=== PATIENT | female | born 1965 | race Caucasian/White ===

== ENCOUNTER 2018-09-17 17:38 | Emergency (ER) | payer OTHER ==
[2018-09-17 17:53] VITALS: O2SAT 99
[2018-09-17 18:41] LABS: BASO # 0.1 K/uL (0.0-0.2); BASO % 1.7 % (0.0-2.0); EOS # 0.2 K/uL (0.0-0.7); EOS % 2.8 % (0.0-4.0); HEMOGLOBIN 11.1 g/dL (12.0-16.0); LYMPH # 2.2 K/uL (1.0-4.3); LYMPH % 30.4 % (20.0-40.0); MEAN CELL VOLUME 69.6 fl (81.0-99.0); MEAN CORPUSCULAR HEMOGLOBIN 21.7 pg (27.0-31.0); MEAN CORPUSCULAR HGB CONC 31.1 g/dL (33.0-37.0); MEAN PLATELET VOLUME 8.4 fl (7.2-11.7); MONO # 0.4 K/uL (0.0-0.8); NEUT # 4.2 K/uL (1.8-7.0); NEUT % 59.1 % (50.0-75.0); NRBC % 0.1 % (0.0-0.0); RBC 5.14 Mil/uL (3.80-5.20); RED CELL DISTRIBUTION WIDTH 19.1 % (11.5-14.5); WHITE BLOOD COUNT 7.1 K/uL (4.8-10.8)
[2018-09-17 18:56] LABS: ALB/GLOB RATIO 1.5 (1.0-2.1); ALBUMIN 4.6 g/dL (3.5-5.0); ALT/SGPT 37 U/L (9-52); AST/SGOT 33 U/L (14-36); BLOOD UREA NITROGEN 12 mg/dl (7-17); CALCIUM 9.4 mg/dL (8.4-10.2); GFR NON-AFRICAN AMERICAN > 60; LIPASE 88 U/L (23-300)
--- NOTE | 2018-09-17 19:03 | ED PDOC ---
HPI: Abdomen Time Seen by Provider: 09/17/18 17:56 Chief Complaint (Nursing): Abdominal Pain Chief Complaint (Provider): Epigastric Pain History Per: Patient History/Exam Limitations: no limitations Onset/Duration Of Symptoms: Other (x2 weeks) Current Symptoms Are (Timing): Still Present Location Of Pain/Discomfort: Epigastric, LLQ Associated Symptoms: Nausea, Diarrhea (x1). denies: Vomiting Additional Complaint(s): 53 year old female presents to the ED stating, for the past 2 weeks, she has had epigastric pain radiating to the LLQ. She reports pain is associated with nausea and has had 1 episode of diarrhea. Denies vomiting, chest pain, shortness of breath, melena, hematochezia, rectal bleeding, fever, chills, or postprandial pain. PMD: none provided Past Medical History Reviewed: Historical Data, Nursing Documentation, Vital Signs Vital Signs: Last Vital Signs Temp 98.6 F 09/17/18 17:52 Pulse 90 09/17/18 17:52 Resp 16 09/17/18 17:52 BP 166/94 H 09/17/18 17:52 Pulse Ox 99 09/17/18 17:52 - Medical History PMH: Anemia, HTN - Surgical History Surgical History: Appendectomy - Family History Family History: States: Unknown Family Hx - Allergies Allergies/Adverse Reactions: Allergies Allergy/AdvReac Type Severity Reaction Status Date / Time No Known Allergies Allergy Verified 09/17/18 17:50 Review of Systems ROS Statement: Except As Marked, All Systems Reviewed And Found Negative Constitutional: Negative for: Fever, Chills Cardiovascular: Negative for: Chest Pain Respiratory: Negative for: Shortness of Breath Gastrointestinal: Positive for: Nausea, Abdominal Pain (Epigastric pain radiating to LLQ), Diarrhea (x1). Negative for: Vomiting, Melena, Hematochezia, Other (rectal bleeding, postprandial pain) Physical Exam - Reviewed Nursing Documentation Reviewed: Yes Vital Signs Reviewed: Yes - Physical Exam Appears: Positive for: No Acute Distress Cardiovascular/Chest: Positive for: Regular Rate, Rhythm Respiratory: Positive for: Normal Breath Sounds. Negative for: Wheezing, Respir atory Distress Gastrointestinal/Abdominal: Positive for: Normal Exam, Soft. Negative for: Tenderness (to deep palpation) Back: Negative for: L CVA Tenderness, R CVA Tenderness - Laboratory Results Result Diagrams: 09/17/18 18:30 09/17/18 18:30 Lab Results: Total Bilirubin 0.3 mg/dl (0.2-1.3) 09/17/18 18:30 AST 33 U/L (14-36) 09/17/18 18:30 ALT 37 U/L (9-52) 09/17/18 18:30 Alkaline Phosphatase 114 U/L (38-126) 09/17/18 18:30 Total Protein 7.7 G/DL (6.3-8.2) 09/17/18 18:30 Albumin 4.6 g/dL (3.5-5.0) 09/17/18 18:30 Globulin 3.1 gm/dL (2.2-3.9) 09/17/18 18:30 Albumin/Globulin Ratio 1.5 (1.0-2.1) 09/17/18 18:30 Lipase 88 U/L (23-300) 09/17/18 18:30 - ECG ECG: Positive for: Interpreted By Me ECG Rhythm: Positive for: Sinus Rhythm. Negative for: ST/T Changes Rate: 92 O2 Sat by Pulse Oximetry: 99 (RA) Pulse Ox Interpretation: Normal Medical Decision Making Medical Decision Making: Initial Impression: Abdominal Pain Initial Plan: --ECG --CMP --Lipase stat --Troponin stat --CBC --Pepcid 20mg IV --Zofran 4mg IV --Urinalysis --Abdomen US Scribe Attestation: Documented by Ben Moffett acting as a scribe for Matt BOWERS Provider Scribe Attestation: All medical record entries made by the Scribe were at my direction and personally dictated by me. I have reviewed the chart and agree that the record accurately reflects my personal performance of the history, physical exam, [facility] decision making, and the department course for this patient. I have also personally directed, reviewed, and agree with the discharge instructions and disposition. Disposition - Clinical Impression Clinical Impression: Abdominal pain - Patient ED Disposition Is Patient to be Admitted: Transfer of Care (Signed out to Surya WILCOX pending US and results, re-evaluation, and final disposition.) - Disposition Disposition Time: 20:00 Condition: FAIR Forms: [employer] ([place]ian)
[2018-09-17 20:20] LABS: SQUAMOUS EPITHIAL 20 /hpf (0-5); URINE BILIRUBIN NEGATIVE (NEGATIVE); URINE BLOOD NEGATIVE (NEGATIVE); URINE COLOR YELLOW (YELLOW); URINE GLUCOSE (UA) NEG (NEGATIVE); URINE LEUKOCYTE ESTERASE NEG Leu/uL (Negative); URINE PROTEIN 30 mg/dL (NEGATIVE); URINE UROBILINOGEN 0.2-1.0 mg/dL (0.2-1.0)
[2018-09-17 20:21] LABS: URINE CLARITY SLIGHT-CLOUDY (Clear)
--- NOTE | 2018-09-17 20:56 | ED PDOC ---
- Laboratory Results Result Diagrams: 09/17/18 18:30 09/17/18 18:30 Lab Results: Troponin I < 0.0120 ng/mL (0.00-0.120) 09/17/18 18:30 Total Bilirubin 0.3 mg/dl (0.2-1.3) 09/17/18 18:30 AST 33 U/L (14-36) 09/17/18 18:30 ALT 37 U/L (9-52) 09/17/18 18:30 Alkaline Phosphatase 114 U/L (38-126) 09/17/18 18:30 Total Protein 7.7 G/DL (6.3-8.2) 09/17/18 18:30 Albumin 4.6 g/dL (3.5-5.0) 09/17/18 18: Globulin 3.1 gm/dL (2.2-3.9) 09/17/18 18:30 Albumin/Globulin Ratio 1.5 (1.0-2.1) 09/17/18 18: Lipase 88 U/L (23-300) 09/17/18 18:30 Urine Color Yellow (YELLOW) 09/17/18 20:00 Urine Clarity Slight-cloudy (Clear) 09/17/18 20:00 Urine pH 6.0 (5.0-8.0) 09/17/18 20:00 Ur Specific [place] 1.013 (1.003-1.030) 09/17/18 20:00 Urine Protein 30 mg/dL (NEGATIVE) 09/17/18 20:00 Urine Glucose (UA) Neg mg/dL (NEGATIVE) 09/17/18 20:00 Urine Ketones Trace mg/dL (NEGATIVE) 09/17/18 20:00 Urine Blood Negative (NEGATIVE) 09/17/18 20:00 Urine Nitrate Negative (NEGATIVE) 09/17/18 20:00 Urine Bilirubin Negative (NEGATIVE) 09/17/18 20:00 Urine Urobilinogen 0.2-1.0 mg/dL (0.2-1.0) 09/17/18 20:00 Ur Leukocyte Esterase Neg Arvin/uL (Negative) 09/17/18 20:00 Urine RBC (Auto) 1 /hpf (0-3) 09/17/18 20:00 Urine Microscopic WBC 1 /hpf (0-5) 09/17/18 20:00 Ur Squamous Epith Cells 20 /hpf (0-5) H 09/17/18 20:00 - ECG O2 Sat by Pulse Oximetry: 99 (RA) - Progress ED Course And Treament: Case endorsed to medical writer from Kelsey WILCOX pending u/s, re-eval EXAM: US Abdomen complete CLINICAL HISTORY: Epigastric abd pain TECHNIQUE: Real-time ultrasound of the abdomen (complete) with image documentation. COMPARISON: None provided. FINDINGS: LIVER: Hepatomegaly. The liver measured 17.5 cm in the midclavicular line. Increased echogenicity indicates hepatic steatosis. GALLBLADDER: No gallstone. Borderline wall thickening measuring 3.4 mm transversely. No peric holecystic fluid. COMMON BILE DUCT: No dilation. 3.7 mm transverse caliber. PANCREAS: Not visualized subsequent to obscuration by bowel gas. KIDNEYS: Unremarkable. Normal renal contours. No renal mass or calculus. No hydronephrosis. SPLEEN: Unremarkable. AORTA: No aneurysm. IVC: Unremarkable as visualized. MISCELLANEOUS: No other significant findings identified. IMPRESSION: 1. Hepatomegaly with steatosis. 2. The pancreas was obscured by bowel gas. 3. Borderline wall thickening of the gallbladder Translation provided via Evie Clifton (medical technologist blood bank/certified fish net stringer) On re-eval patient resting comfortably; states she is feeling better Patient states she saw her primary doctor 5 days ago for same and was prescribed Ranitidine, Zofran, and Florastor for likely gastritis; and has appointment to see a GI doctor in early October. Patient was advised to continue current medications, diet modification, and follow up with GI as scheduled Return precautions given Disposition - Clinical Impression Clinical Impression: Abdominal pain - POA Present On Arrival: None - Disposition Disposition: Routine/Home Disposition Time: 21:11 Condition: IMPROVED Instructions: Acute Abdomen (Belly Pain) Print Language: ARABIC
[2018-09-17 21:25] VITALS: BP 173/99; PULSE 93; RESP 18; TEMP 97.5
--- NOTE | 2018-09-18 09:11 | CARD ---
APPROVED REPORT Date of service: 09/17/2018 EKG Measurement Heart [id number] <Conclusion> Normal sinus rhythm Normal ECG
--- NOTE | 2018-09-18 11:08 | US ---
Date of service: 09/17/2018 HISTORY: epigastric abd pain COMPARISON: None. TECHNIQUE: Sonographic evaluation of the abdomen. FINDINGS: LIVER: Measures 13.5 cm. Hepatopedal blood flow. Fatty infiltration manifest ultrasonographically as increased echogenicity of the liver parenchyma. No mass. No intrahepatic bile duct dilatation. GALLBLADDER: Unremarkable. No gallstones. COMMON BILE DUCT: Measures 3.7 mm. No stones. No dilatation. PANCREAS: Obscured by overlying bowel gas. Non diagnostic assessment of the pancreas. RIGHT KIDNEY: Measures 0.8 x 11.5cm. Normal echogenicity. No calculus, mass, or hydronephrosis. LEFT KIDNEY: Measures 5.1 x 12.3cm. Normal echogenicity. No calculus, mass, or hydronephrosis. SPLEEN: Normal in size and contour. No mass. AORTA: No aneurysmal dilatation. IVC: Unremarkable. OTHER FINDINGS: None. IMPRESSION: No acute findings related to/ accounting for the clinical presentation. Limitations of the current examination: Nondiagnostic study of the pancreas. Concordant findings (preliminary report) provided by [facility].
== END 2018-09-17 21:30 | disposition home or self-care (01) ==
LOC: H.ER 17:38
DX: R10.13 Epigastric pain (principal); I10 Essential (primary) hypertension
CPT/HCPCS: 76700; 80053; 81003; 83690; 84484; 85025; 93005; 96374; 96375; 99283; J2405

== ENCOUNTER 2018-09-19 17:30 | Emergency (ER) | payer OTHER ==
[2018-09-19] MEDS ORDERED: Sodium Chloride 0.9% 1,000 ML IV STA (18:30)
--- NOTE | 2018-09-19 18:53 | ED PDOC ---
HPI: Abdomen Time Seen by Provider: 09/19/18 17:54 Chief Complaint (Nursing): Abdominal Pain Chief Complaint (Provider): Abdominal Pain History Per: Patient History/Exam Limitations: no limitations Current Symptoms Are (Timing): Still Present Location Of Pain/Discomfort: Epigastric Quality Of Discomfort: "Pain" Associated Symptoms: denies: Fever, Nausea, Vomiting, Diarrhea Additional Complaint(s): 53 year old female with a history of hypertension presents to the ED with epigastric abdominal pain no associated nausea, vomiting, diarrhea or fever. Patient was evaluated in this ED on 09/17/2018 with US unremarkable. She was told to follow up with PMD who advised her to return if pain worsened. PMD: Iliana Kidd Past Medical History Reviewed: Historical Data, Nursing Documentation, Vital Signs Vital Signs: Last Vital Signs Temp 98.6 F 09/19/18 17:33 Pulse 96 H 09/19/18 17:33 Resp 18 09/19/18 17:33 BP 163/99 H 09/19/18 17:33 Pulse Ox 98 09/19/18 17:33 - Medical History PMH: Anemia, HTN Denies: Chronic Kidney Disease - Surgical History Surgical History: Appendectomy - Family History Family History: States: Unknown Family Hx - Immunization History Hx Tetanus Toxoid Vaccination: No Hx Influenza Vaccination: Yes Hx Pneumococcal Vaccination: No - Allergies Allergies/Adverse Reactions: Allergies Allergy/AdvReac Type Severity Reaction Status Date / Time No Known Allergies Allergy Verified 09/17/18 17:50 Review of Systems ROS Statement: Except As Marked, All Systems Reviewed And Found Negative Constitutional: Negative for: Fever Gastrointestinal: Positive for: Abdominal Pain. Negative for: Nausea, Vomiting, Diarrhea Physical Exam - Reviewed Nursing Documentation Reviewed: Yes Vital Signs Reviewed: Yes - Physical Exam Appears: Positive for: Non-toxic, No Acute Distress Head Exam: Positive for: ATRAUMATIC, NORMOCEPHALIC Skin: Positive for: Normal Color, Warm, Dry Eye Exam: Positive for: EOMI, Normal appearance, PERRL Cardiovascular/Chest: Positive for: Regular Rate, Rhythm. Negative for: Murmur Respiratory: Positive for: Normal Breath Sounds. Negative for: Respiratory Distress Gastrointestinal/Abdominal: Positive for: Tenderness (mid epigastric tenderness) Extremity: Positive for: Normal ROM (upper and lower). Negative for: Pedal Edema, Deformity Neurological/Psych: Positive for: Awake, Alert, Oriented (x3) - ECG O2 Sat by Pulse Oximetry: 98 (RA) Pulse Ox Interpretation: Normal Medical Decision Making Medical Decision Making: Time: 1829 --Will repeat blood work and lipase. Will order Pepcid and reevaluate patient. Scribe Attestation: Documented by Mervat Moffett, acting as a scribe for Phillip Ambrosio MD. Provider Scribe Attestation: All medical record entries made by the Scribe were at my direction and personally dictated by me. I have reviewed the chart and agree that the record accurately reflects my personal performance of the history, physical exam, medical decision making, and the department course for this patient. I have also personally directed, reviewed, and agree with the discharge instructions and disposition. Disposition - Clinical Impression Clinical Impression: Abdominal pain - Patient ED Disposition Is Patient to be Admitted: Transfer of Care - Disposition Disposition Time: 19:00 Condition: FAIR Forms: [email or web address] (Mexican) Patient Signed Over To: Carlos Hernandez (Pending labs and abd pain reeval)
[2018-09-19 18:55] LABS: BASO # 0.1 K/uL (0.0-0.2); BASO % 1.3 % (0.0-2.0); EOS # 0.2 K/uL (0.0-0.7); EOS % 2.8 % (0.0-4.0); HEMOGLOBIN 11.4 g/dL (12.0-16.0); LYMPH # 2.4 K/uL (1.0-4.3); LYMPH % 29.5 % (20.0-40.0); MEAN CELL VOLUME 70.3 fl (81.0-99.0); MEAN CORPUSCULAR HEMOGLOBIN 21.7 pg (27.0-31.0); MEAN CORPUSCULAR HGB CONC 30.8 g/dL (33.0-37.0); MEAN PLATELET VOLUME 8.8 fl (7.2-11.7); MONO # 0.5 K/uL (0.0-0.8); MONO % 6.4 % (0.0-10.0); NRBC % 0.1 % (0.0-0.0); RBC 5.24 Mil/uL (3.80-5.20); RED CELL DISTRIBUTION WIDTH 18.8 % (11.5-14.5); WHITE BLOOD COUNT 8.3 K/uL (4.8-10.8)
[2018-09-19 19:23] LABS: ALB/GLOB RATIO 1.5 (1.0-2.1); ALBUMIN 4.8 g/dL (3.5-5.0); ALT/SGPT 39 U/L (9-52); AST/SGOT 41 U/L (14-36); BLOOD UREA NITROGEN 18 mg/dl (7-17); CALCIUM 9.8 mg/dL (8.4-10.2); GFR NON-AFRICAN AMERICAN > 60; LIPASE 97 U/L (23-300)
--- NOTE | 2018-09-19 19:34 | ED PDOC ---
- Laboratory Results Result Diagrams: 09/19/18 18:30 09/19/18 18:30 Lab Results: Total Bilirubin 0.3 mg/dl (0.2-1.3) 09/19/18 18:30 AST 41 U/L (14-36) H D 09/19/18 18:30 ALT 39 U/L (9-52) 09/19/18 18:30 Alkaline Phosphatase 106 U/L (38-126) 09/19/18 18:30 Total Protein 8.0 G/DL (6.3-8.2) 09/19/18 18:30 Albumin 4.8 g/dL (3.5-5.0) 09/19/18 18:30 Globulin 3.2 gm/dL (2.2-3.9) 09/19/18 18:30 Albumin/Globulin Ratio 1.5 (1.0-2.1) 09/19/18 18:30 Lipase 97 U/L (23-300) 09/19/18 18:30 - ECG O2 Sat by Pulse Oximetry: 98 (RA) Pulse Ox Interpretation: Normal Medical Decision Making Medical Decision Making: Time: 1899 --Patient signed out to this provider by Dr. Ambrosio, pending labs and reevaluation. Time: 2305 --Labs reviewed, no clinically significant abnormalities, patient reports improvement in symptoms. She has been taking renadine with little improvement. Provider will change prescription to Nexium. --- Scribe Attestation: Documented by Mervat Moffett, acting as a scribe for Carlos Hernandez MD. Provider Scribe Attestation: All medical record entries made by the Scribe were at my direction and personally dictated by me. I have reviewed the chart and agree that the record accurately reflects my personal performance of the history, physical exam, medical decision making, and the department course for this patient. I have also personally directed, reviewed, and agree with the discharge instructions and d isposition. Disposition - Clinical Impression Clinical Impression: Gastritis - POA Present On Arrival: None - Disposition Disposition: Routine/Home Disposition Time: 23:06 Condition: STABLE Prescriptions: Esomeprazole Magnesium [Nexium] 20 mg PO QAM #30 ecc Instructions: Gastritis Forms: [employer] (Ukrainian) Print Language: [email or web address]
[2018-09-19 22:04] VITALS: BP 138/78; PULSE 88; RESP 18; TEMP 97.6
[2018-09-19 23:09] VITALS: O2SAT 98
== END 2018-09-19 22:02 | disposition home or self-care (01) ==
LOC: H.ER 17:30
DX: K29.70 Gastritis, unspecified, without bleeding (principal); I10 Essential (primary) hypertension
CPT/HCPCS: 80053; 81025; 83690; 85025; 96374; 99284; J7030